=== PATIENT | female | born 1975 | race Caucasian/White ===

== ENCOUNTER → 2023-12-02 12:32 | Outpatient (REF) | payer BC, SELFPAY | LOC: HWRAD 12:32 | PROVIDERS: ATTENDING PHYSICIAN Physician Assistant Medical | DX: M54.31 Sciatica, right side (principal) | CPT/HCPCS: 73502 ==

== ENCOUNTER → 2023-12-17 12:32 | Outpatient (REF) | payer BC, SELFPAY | LOC: HWRAD 12:32 | PROVIDERS: ATTENDING PHYSICIAN Physician Assistant Medical | DX: M54.31 Sciatica, right side (principal); M79.604 Pain in right leg; G89.29 Other chronic pain; M54.41 Lumbago with sciatica, right side | CPT/HCPCS: 77080 ==

== ENCOUNTER → 2024-04-15 15:44 | Outpatient (REF) | payer BC, SELFPAY | LOC: HWRAD 15:44 | PROVIDERS: ATTENDING PHYSICIAN Internal Medicine Rheumatology; FAMILY PHYSICIAN Physician Assistant Medical | DX: M06.4 Inflammatory polyarthropathy (principal) | CPT/HCPCS: 73100; 73120 ==